=== PATIENT | female | born 1955 | race Caucasian/White ===

== ENCOUNTER 2019-12-31 13:49 | Emergency (ER) | payer OTHER, SELFPAY ==
--- NOTE | 2019-12-31 13:58 | ED.GENADULT ---
HPI - General Adult General Chief complaint: Wound/Laceration Stated complaint: Right tom lac Time Seen by Provider: 12/31/19 13:58 Source: patient Mode of arrival: ambulatory Limitations: no limitations History of Present Illness HPI narrative: 64-year-old female patient presents to the [facility] with complaints of a right leg laceration that happened today. Patient states that she cut her leg on a metal shelf. Patient unknown of when her last tetanus shot was thinks it has been over 10 years. Patient denies any history of diabetes but states that she is on a lot of steroids due to asthma. Related Data Home Medications Medication Instructions Recorded Confirmed albuterol sulfate 12/31/19 azelastine INTRANASAL 12/31/19 bupropion HCl mg PO 12/31/19 dupilumab [Dupixent Syringe] mg SUBCUT 12/31/19 fluticasone furoate-vilanterol INHALATION 12/31/19 [Breo Ellipta] fluticasone propionate [Flovent] 1 puff INHALATION Q12H 12/31/19 12/31/19 montelukast [Singulair] 10 mg PO DAILY 12/31/19 12/31/19 Allergies Allergy/AdvReac Type Severity Reaction Status Date / Time epinephrine Allergy Other Verified 12/31/19 14:14 Review of Systems Review of Systems: Narrative: CONSTITUTIONAL: Denies fever, chills, or sweats. EYES: Denies visual changes, redness, or discharge. ENT: Denies rhinorrhea, congestion, sore throat, or otalgia. CARDIOVASCULAR: Denies chest pain, palpitations, or edema. RESPIRATORY: Denies cough or dyspnea. GASTROINTESTINAL: Denies abdominal pain, nausea, vomiting, or diarrhea. GENITOURINARY: Denies dysuria or hematuria. SKIN: Denies rash or itching. Positive laceration right tom MUSCULOSKELETAL: Denies back pain, joint pain, or myalgia. NEUROLOGIC: Denies headache, numbness, or weakness. PSYCHIATRIC: Denies anxiety or depression. [facility] Social History Social History Gender identity (if verbalized by the patient): Female Comments At the time of my signature I agree with nursing past medical history, surgical, social, and family history. There is no relevant family history pertinent to the presenting complaint. Exam Narrative: Exam Narrative: GENERAL: Well-appearing, well-nourished, and in no acute distress. HEAD: Normocephalic, atraumatic. EYES: PERRLA and EOMI. ENT: Nares clear, no rhinorrhea or epistaxis. Mucous membranes moist. NECK: Supple. No lymphadenopathy CHEST: Clear to auscultation. No respiratory distress. HEART: Regular rate and rhythm. No murmur heard. Normal peripheral pulses. ABDOMEN: Soft, nontender, nondistended, normal active bowel sounds. EXTREMITIES: Normal range of motion. No edema. Patient has approximately 6 m vertical laceration to the right tom. There is adipose tissue exposed. There is no active bleeding at this time. The skin over the adipose tissue is gone and appears to be an avulsion wound. Patient has good range of motion and good DP pulses to right foot. SKIN: Warm, dry, no rash. NEURO: No focal deficits. Alert and oriented x3. Course Reevaluation(s) Reevaluation #1: Patient refusing any further care at this clinic. Patient refusing her tetanus shot at this time and states that she is going to leave and go to [id number] to seek a second opinion on her wound. Discussed with patient I will go ahead and dressed the wound and we did already clean it. Discussed with patient that she is going to need a tetanus shot and offered to give that to her before she leaves however she has refused a tetanus shot at this time. Date: 12/31/19 Time: 14:37 Vital Signs Vital signs: Vital Signs Temperature 36.9 C 12/31/19 14:00 Pulse Rate 95 12/31/19 14:00 Respiratory Rate 16 12/31/19 14:00 Blood Pressure 156/75 H 12/31/19 14:00 Pulse Oximetry 98 12/31/19 14:00 Temperature 36.9 C 12/31/19 14:00 Pulse Rate 95 12/31/19 14:00 Respiratory Rate 16 12/31/19 14:00 Blood Pressure 156/75 H 12/30
[2019-12-31 14:00] VITALS: BP 156/75; PULSE 95; RESP 16; TEMP 36.9; O2SAT 98
== END 2019-12-31 14:41 | disposition home or self-care (01) ==
PROVIDERS: Emergency Provider Nurse Practitioner Family; PCP Internal Medicine
DX: S81.801A Unspecified open wound, right lower leg, initial encounter (principal); W45.8XXA Other foreign body or object entering through skin, initial encounter; J45.909 Unspecified asthma, uncomplicated
CPT/HCPCS: 99212; G0463